=== PATIENT | male | born 1955 | race Caucasian/White ===

== ENCOUNTER → 2017-06-08 | Outpatient (CLI) | payer SELFPAY ==
--- NOTE | 2017-06-08 11:21 | KCIC ---
Indication: Low back pain. Time of exam 11 00 a.m. There is mild S-shaped scoliotic curvature to the lumbar spine, convex to the right in the upper portion and convex to the left in the lower portion. There is normal lordotic curvature. The vertebral body heights are maintained. No acute compression fracture is seen. There is significant degenerative disc disease at the L4-5 level, with disc space narrowing, marginal osteophyte formation, and vacuum disc phenomena. No definite spondylolysis or spondylolisthesis is identified. IMPRESSION: Lumbar scoliosis and spondylosis. No acute bony abnormality is detected. Electronically signed by: Aidan Alatorre MD (06/08/2017 11:18 AM) [id number]
== END | disposition home or self-care (01) ==
LOC: KCIC 10:46
PROVIDERS: ATTEND Family Medicine
DX: M47.896 Other spondylosis, lumbar region (principal); M41.86 Other forms of scoliosis, lumbar region
CPT/HCPCS: 72110

== ENCOUNTER 2019-04-08 09:26 | Emergency (ER) | payer MEDICARE ==
[~2019-04-08] VITALS: Ht 172.7 cm; Wt 68.0 kg
--- NOTE | 2019-04-08 09:58 | PHYS DOC ---
Past Medical History Past Medical History: High Cholesterol, Hypertension Past Surgical History: No Surgical History Alcohol Use: Heavy Additional Information: on average 4 beers/day Drug Use: Marijuana Adult General Chief Complaint Chief Complaint: OTHER COMPLAINTS HPI HPI Patient is a 63 year old was sent here from his PCP clinic due to rash on his face, mouth , trunk and extremities that just started to appear since yesterday. Patient is complaining of sorethroat, hurt to swallow, eye lids swelling. Patient was put on Bactrim DS on 03/22/19 for 10 days for some type of skin infection. Patient finished this medication already. Then, yesterday he developed the rash. Patient also has some diarrhea. No chest pain, no shortness of air. He felt like he has a fever but did not check his temperature. Patient denied taking any other new medications or using new soap or perfume. Patient took Cialis yesterday but he was doing ok with Cialis in the past. Review of Systems Review of Systems Constitutional: POSITIVE FOR fever or chills [] Eyes: Denies change in visual acuity, POSITIVE FOR redness AND eye pain [] HENT: Denies nasal congestion , POSITIVE FOR sore throat [] Respiratory: Denies cough or shortness of breath [] Cardiovascular: No additional information not addressed in HPI [] GI: Denies abdominal pain, nausea, vomiting, bloody stools or diarrhea [] : Denies dysuria or hematuria [] Musculoskeletal: Denies back pain or joint pain [] Integument: POSITIVE FOR SKIN RASH[] Neurologic: Denies headache, focal weakness or sensory changes [] Endocrine: Denies polyuria or polydipsia [] All other systems were reviewed and found to be within normal limits, except as documented in this note. Current Medications Current Medications Current Medications Medications (Trade) Dose Ordered Sig/Anjali Start Time Stop Time Status Last Admin Dose Admin Diphenhydramine HCl (Benadryl) 25 mg 1X ONCE 04/08/19 10:45 04/08/19 10:46 DC 04/08/19 11:03 25 MG Famotidine (Pepcid Vial) 20 mg 1X ONCE 04/08/19 10:45 04/08/19 10:46 DC 04/08/19 11:03 20 MG Fentanyl Citrate (Fentanyl 2ml Vial) 25 mcg 1X ONCE 04/08/19 17:00 04/08/19 17:01 DC 04/08/19 17:07 25 MCG Methylprednisolone Sodium Succinate (SOLU-Medrol 125MG VIAL) 125 mg 1X ONCE 04/08/19 10:45 04/08/19 10:46 DC 04/08/19 11:03 125 MG Sodium Chloride 1,000 ml @ 1,000 mls/hr 1X ONCE 04/08/19 12:00 04/08/19 12:59 DC 04/08/19 12:01 1,000 MLS/HR Allergies Allergies Allergies Coded Allergies Type Severity Reaction Last Updated Verified No Known Drug Allergies 04/08/19 No Physical Exam Physical Exam Constitutional: Well developed, well nourished, no acute distress, non-toxic appearance. [] HENT: Normocephalic, atraumatic, bilateral external ears normal, MUCOSAL DESQUAMATION, INFLAMMATION AND PEELING OF SKIN OFF UPPER AND LOWER LIPS, NUMEROUS SORES ON TONGUE AND ORAL MUCOSA. [] Eyes: PERRLA, EOMI, conjunctiva INJECTED, INFLAMMATION OF EYE LIDS BILATERALLY. Neck: Normal range of motion, no tenderness, supple, no stridor. [] Cardiovascular:Heart rate regular rhythm, no murmur [] Lungs & Thorax: Bilateral breath sounds clear to auscultation [] Abdomen: Bowel sounds normal, soft, no tenderness, no masses, no pulsatile masses. [] Skin: DIFFUSE WIDE SPREAD PAPULAR RASH ON NECK, FACE, CHEST, EXTREMITIES, PALM OF HANDS, SOLE OF FEET. Back: No tenderness, no CVA tenderness. [] Extremities: No tenderness, no cyanosis, no clubbing, ROM intact, no edema. [] Neurologic: Alert and oriented X 3, normal motor function, normal sensory function, no focal deficits noted. [] Psychologic: Affect normal, judgement normal, mood normal. [] Current Patient Data Vital Signs Vital Signs Date Time Temp Pulse Resp B/P (MAP) Pulse Ox O2 Delivery O2 Flow Rate FiO2 04/08/19 17:07 20 Room Air 04/08/19 16:37 102 121/73 (89) 04/08/19 16:07 93 04/08/19 09:37 98.8 98.8 Lab Values Laboratory Tests Test 04/08/19 10:00 04/08/19 13:54 White Blood Count 11.8 x10^3/uL (4.0-11.0) H Red Blood Count 4.80 x10^6/uL (4.30-5.70) Hemoglobin 15.7 g/dL (13.0-17.5) Hematocrit 46.2 % (39.0-53.0) Mean Corpuscular Volume 96 fL (79-100) Mean Corpuscular Hemoglobin 33 pg (25-35) Mean Corpuscular Hemoglobin Concent 34 g/dL (31-37) Red Cell Distribution Width 13.6 % (11.5-14.5) Platelet Count 181 x10^3/uL (140-400) Neutrophils (%) (Auto) 84 % (31-73) H Lymphocytes (%) (Auto) 9 % (24-48) L Monocytes (%) (Auto) 7 % (0-9) Eosinophils (%) (Auto) 0 % (0-3) Basophils (%) (Auto) 0 % (0-3) Neutrophils # (Auto) 9.9 x10^3uL (1.8-7.7) H Lymphocytes # (Auto) 1.0 x10^3/uL (1.0-4.8) Monocytes # (Auto) 0.8 x10^3/uL (0.0-1.1) Eosinophils # (Auto) 0.0 x10^3/uL (0.0-0.7) Basophils # (Auto) 0.0 x10^3/uL (0.0-0.2) Prothrombin Time 14.0 SEC (11.7-14.0) Prothrombin Time INR 1.1 (0.8-1.1) PTT 31 SEC (24-38) Sodium Level 133 mmol/L (136-145) L Potassium Level 3.6 mmol/L (3.5-5.1) Chloride Level 99 mmol/L (98-107) Carbon Dioxide Level 24 mmol/L (21-32) Anion Gap 10 (6-14) Blood Urea Nitrogen 18 mg/dL (8-26) Creatinine 1.3 mg/dL (0.7-1.3) Estimated GFR (Cockcroft-Gault) 55.4 BUN/Creatinine Ratio 14 (6-20) Glucose Level 176 mg/dL (70-99) H Lactic Acid Level 2.1 mmol/L (0.4-2.0) H 1.0 mmol/L (0.4-2.0) Calcium Level 8.6 mg/dL (8.5-10.1) Total Bilirubin 0.3 mg/dL (0.2-1.0) Aspartate Amino Transferase (AST) 40 U/L (15-37) H Alanine Aminotransferase (ALT) 65 U/L (16-63) H Alkaline Phosphatase 87 U/L (46-116) Creatine Kinase 120 U/L (39-308) Creatine Kinase MB (Mass) 1.0 ng/mL (0.0-3.6) Creatine Kinase MB Relative Index 0.8 % (0-4) Total Protein 7.8 g/dL (6.4-8.2) Albumin 3.3 g/dL (3.4-5.0) L Albumin/Globulin Ratio 0.7 (1.0-1.7) L Laboratory Tests 04/08/19 10:00 Laboratory Tests 04/08/19 10:00 EKG EKG [] Radiology/Procedures Radiology/Procedures [] Course & Med Decision Making Course & Med Decision Making Pertinent Labs and Imaging studies reviewed. (See chart for details) Discussed case with Dr. Lanie Turner, recommended to transfer patient to to be evaluated by wood floor refinisher and Burn specialist. Called transfer Center, discussed with ATTENDING PHYSICIAN, requested send pictures to [email or web address] before he can accept patient. Dragon Disclaimer Dragon Disclaimer This electronic medical record was generated, in whole or in part, using a voice recognition dictation system. Departure Departure Impression: Primary Impression: Allergic reaction to sulfonamide Additional Impression: Hurst-Mitch syndrome Disposition: 02 TRANSFER [facility] HOSP (TRANSFER TO [facility], ACCEPTED BY DR. LARES) Condition: STABLE Referrals: Martha CARR MD (PCP) Problem Qualifiers QAMAR JEFFERS DO Apr 08, 2019 09:58
[2019-04-08 10:23] LABS: CALCIUM 8.6 mg/dL (8.5-10.1); CREATININE 1.3 mg/dL (0.7-1.3); GFR 55.4; POTASSIUM 3.6 mmol/L (3.5-5.1)
--- NOTE | 2019-04-08 10:25 | RAD ---
Examination: PORTABLE CHEST 1V History: Fever Comparison/Correlation: 09/24/2018 two-view chest x-ray report Findings: Frontal and lateral views of chest were obtained. Heart size and pulmonary vascular are normal. No focal infiltrate. No pleural effusion or pneumothorax. Minimal linear scarring or discoid atelectasis involves the right lung base. This has been described on the previous report. There is a 0.9 cm diameter left upper lung field calcified granuloma. Impression: No infiltrate. Electronically signed by: Raul Young MD (04/08/2019 10:22 AM) [id number]
[2019-04-08 10:30] LABS: ALBUMIN 3.3 g/dL (3.4-5.0); ALBUMIN/GLOBULIN RATIO 0.7 (1.0-1.7); TOTAL BILIRUBIN 0.3 mg/dL (0.2-1.0); TOTAL PROTEIN 7.8 g/dL (6.4-8.2)
[2019-04-08 10:32] LABS: BASO % 0 % (0-3); EOS % 0 % (0-3); HEMATOCRIT 46.2 % (39.0-53.0); HEMOGLOBIN 15.7 g/dL (13.0-17.5); LYMPH % 9 % (24-48); MEAN CORPUSCULAR HEMOGLOBIN 33 pg (25-35); MEAN CORPUSCULAR HGB CONC 34 g/dL (31-37); MEAN CORPUSCULAR VOLUME 96 fL (79-100); MONO # 0.8 x10^3/uL (0.0-1.1); MONO % 7 % (0-9); NEUT # 9.9 x10^3uL (1.8-7.7); NEUT % 84 % (31-73); PLATELET COUNT 181 x10^3/uL (140-400); RED CELL DISTRIBUTION WIDTH 13.6 % (11.5-14.5); WHITE BLOOD COUNT 11.8 x10^3/uL (4.0-11.0)
[2019-04-08] MEDS ORDERED: methylPREDNISolone SOD SUCC PF 125 MG/2 ML VIAL. IV ONE (10:45)
[2019-04-08] MEDS ORDERED: diphenhydrAMINE 50 MG/ML VIAL IVP ONE (10:45)
[2019-04-08] MEDS ORDERED: FAMOTIDINE 20 MG/2 ML VIAL IVP ONE (10:45)
[2019-04-08] MEDS ORDERED: IV NORMAL SALINE 1000ML BAG 1,000 ML IV ONE (12:00)
[2019-04-08] MEDS ORDERED: fentaNYL PF VIAL 100 MCG/2 ML VIAL IV ONE (17:00)
[2019-04-08 17:37] VITALS: BP 110/69
== END 2019-04-08 18:22 | disposition short-term general hospital (02) ==
LOC: ER 09:26
DX: L51.1 Stevens-Johnson syndrome (principal); T37.0X5A Adverse effect of sulfonamides, initial encounter; R19.7 Diarrhea, unspecified; J02.9 Acute pharyngitis, unspecified; F10.20 Alcohol dependence, uncomplicated; Y90.9 Presence of alcohol in blood, level not specified; Y92.89 Other specified places as the place of occurrence of the external cause
CPT/HCPCS: 36415; 71045; 80053; 82553; 83605; 85025; 85610; 85730; 87040; 96361; 96374; 96375; 99285; J1200; J2930; J3010; J3490; J7030

== ENCOUNTER → 2020-10-27 | Outpatient (CLI) | payer OTHER ==
[~2020-10-27] MED LIST: AMLO-186 PO; ATOR40TA59 PO; GABA300C18 PO; LISI-130 PO; METO-247 PO
== END ==
LOC: LAB 14:20
PROVIDERS: ATTEND Surgery
DX: Z01.812 Encounter for preprocedural laboratory examination (principal); Z20.828 Contact with and (suspected) exposure to other viral communicable diseases
CPT/HCPCS: U0003

== ENCOUNTER → 2020-10-30 | Day surgery (SDC) | payer OTHER ==
[~2020-10-30] MED LIST changes: +LIDOCAINE 1%/EPI 1:100,000 20 ML VIAL. INJ ONE
--- NOTE | 2020-10-30 12:03 | PDOC4 ---
Operative Note Operative Note Date: October 302020 at 1201 Preoperative diagnosis: Upper back mass Postoperative diagnosis: Same Procedure: Excision of upper back mass Surgeon: Drake Specimen: Upper back mass 1.5 cm Dictation: Patient is a 65-year-old gentleman is complaining of an enlarging mass on his upper back that occasionally is quite painful. Procedure of excision was explained to the patient detail was benefits were also discussed including bleeding infection alternatives to this procedure also discussed with the patient who seemed to understand and gave a verbal written consent had saranya faye performed. Patient placed in the prone positioning his upper back was prepped and draped usual sterile fashion using ChloraPrep. Area around the mass was injected with 1% lidocaine with epinephrine once this is anesthetized an elliptical incision was made with 15 blade scalpel the incision size was 2 cm the mass was completely excised sharply and sent for pathology. The wound was then closed in 2 layers deep layer running 3-0 Vicryl and the skin was reapproximated for subcuticular Monocryl Mastisol Steri-Strips and island dressings were applied. Patient tolerated procedure well was discharged home in stable condition all sponge instrument needle counts listed as correct. Estimated blood loss 5 mL EMILY POP MD Oct 30, 2020 12:03
--- NOTE | 2020-10-30 12:04 | DISCH ---
DISCHARGE INSTRUCTIONS Condition on Discharge Condition on Discharge: Stable Activity After Discharge Activity Instructions for Disc: Activity as tolerated Diet after Discharge Diet after Discharge: Regular Wound Incision Care Other wound/incision instructi: Sheyla shower 24 hours Contacting the after DC Call your doctor for: If your condition worsens Follow-Up Follow up with: Dr. Pop in 2 weeks EMILY POP MD Oct 30, 2020 12:04
== END | disposition home or self-care (01) ==
LOC: SURG 10:59
PROVIDERS: ATTEND Surgery
DX: R22.1 Localized swelling, mass and lump, neck (principal); L72.3 Sebaceous cyst; L72.0 Epidermal cyst; I10 Essential (primary) hypertension; F17.210 Nicotine dependence, cigarettes, uncomplicated; Z79.899 Other long term (current) drug therapy; Z98.890 Other specified postprocedural states; Z88.2 Allergy status to sulfonamides; Z88.8 Allergy status to other drugs, medicaments and biological substances; Z72.89 Other problems related to lifestyle
CPT/HCPCS: 11402; 88304; J3490

== ENCOUNTER → 2021-05-24 | Outpatient (CLI) | payer OTHER ==
[~2021-05-24] MED LIST changes: -LIDOCAINE 1%/EPI 1:100,000 20 ML VIAL. INJ ONE
--- NOTE | 2021-05-24 12:16 | KCIC ---
EXAM: CT coronary artery calcium screening; radiologist over read. HISTORY: Cardiovascular screening. Hyperlipidemia. Hypertension. Cigarette smoking. TECHNIQUE: Computed tomographic images of the chest were obtained without contrast. Multiplanar refor matting was performed. *One or more of the following individualized dose reduction techniques were utilized for this examina tion: 1. Automated exposure control. 2. Adjustment of the mA and/or kV according to patient size. 3. Use of iterative reconstruction technique. COMPARISON: None. FINDINGS: The heart is normal in size. There is calcified atherosclerotic plaque involving the correa ry arteries. There is no lymphadenopathy. There is no pneumothorax or pleural effusion. There is mild pulmonary emphysema. There is linear atelectasis or scarring within the lingula. There is also bilat eral basilar linear atelectasis or scarring. There is no acute osseous finding or acute finding invol ving the visualized upper abdomen. Coronary artery calcium score: Left main artery - 0 Left anterior descending - 327.0 Left circumflex - 51.4 Right coronary artery - 420.1 Posterior descending artery - 0 TOTAL = 798.5 IMPRESSION: 1. Coronary artery calcium score of 798.5. There is a large amount of calcified atherosclerotic plaqu e. The chance of a cardiac event is high. 2. Mild pulmonary emphysema and bilateral linear atelectasis or scarring. There is no acute thoracic finding. Electronically signed by: Eliza Singh MD (05/24/2021 12:14 PM) [id number]
== END ==
LOC: KCIC CT 10:30
PROVIDERS: ATTEND Family Medicine
DX: Z13.6 Encounter for screening for cardiovascular disorders (principal); I25.10 Atherosclerotic heart disease of native coronary artery without angina pectoris; J43.9 Emphysema, unspecified
CPT/HCPCS: 75571

== ENCOUNTER → 2021-05-27 | Outpatient (CLI) | payer OTHER ==
--- NOTE | 2021-05-27 14:32 | KCIC ---
EXAM: Lower extremity arterial Doppler sonogram with ankle-brachial indices (LINA). HISTORY: Tobacco use. Leg weakness. Hypertension. Peripheral vascular disease. Atherosclerosis. TECHNIQUE: Doppler sonographic evaluation of the lower extremities was performed and pressure reading s were assessed. FINDINGS: Right brachial pressure: 148 mmHg Left brachial pressure: 146 mmHg Right ankle pressure (dorsalis pedis artery): 143 mmHg Right ankle pressure (posterior tibial artery): 147 mmHg Right LINA: 0.99 Left ankle pressure (dorsalis pedis artery): 143 mmHg Left ankle pressure (posterior tibial artery): 140 mmHg Left LINA: 0.96 IMPRESSION: Normal bilateral ankle brachial indices. Electronically signed by: Eliza Singh MD (05/27/2021 2:30 PM) [id number]
== END ==
LOC: KCIC US 14:04
PROVIDERS: ATTEND Family Medicine
DX: I70.203 Unspecified atherosclerosis of native arteries of extremities, bilateral legs (principal); I10 Essential (primary) hypertension; R53.1 Weakness; Z72.0 Tobacco use
CPT/HCPCS: 93922

== ENCOUNTER → 2021-08-10 | Outpatient (CLI) | payer OTHER ==
[~2021-08-10] MED LIST changes: +REGADENOSON 0.4 MG/5 ML DISP.SYRIN. IV ONE
--- NOTE | 2021-08-11 17:16 | RAD ---
MR#: [id number] Date of Study: 08/10/2021 Ordering Physician: ALEJANDRO ALFORD, Referring Physician: PRITESH NIETO Tech: RT Jerel Burton) (N) APPROVED REPORT Test Type: Pharmacological Stress Nurse/Tech: Marika Fish RN Test Indications: Dyspnea on exertion Cardiac History: Hypertension,smoker Medications: See Electronic Medical Record Medical History: See Electronic Medical Record Resting ECG: SR Resting Heart Rate: 65 bpm Resting Blood Pressure: 130/80mmHg Pretest Chest Pain: No chest pain Nurse/Tech Notes S1,S2 and lungs slightly diminished in the bases. Consent: The procedure was explained to the patient in lay terms. Informed consent was witnessed. Daren eout was entered into [employer]. History and Stress Test performed by RT Jerel Burton) (N) Pharm. Details Pharmacologic stress testing was performed using 0.4mg per 5ml of regadenoson given intravenously ove r 7-10 seconds. Stress Symptoms Dyspnea,felt "weird" POST EXERCISE Reason for Termination: Infusion complete Target HR: No Max HR: 110 bpm 84% of Maximum Predicted HR: 130 bpm Max Blood Pressure: 123/82mmHg Blood Pressure response to exercise: Normal blood pressure response during stress. Heart Rate response to exercise: WNL Chest Pain: No. Arrhythmia: No. INTERPRETATION Stress EKG Conclusion: The resting EKG shows a sinus rhythm. The stress EKG shows no significant changes from baseline. No EKG evidence of stress-induced ischemia. Imaging Protocol IMAGE PROTOCOL: Rest Tc-99m/stress Tc-99m 1 day Rest: Stress: Viability: Radiopharm.Tc99m [id number] Sestamibi Dose10.4mCi 31mCi Duration 13min. 13min. Img Date 08/10/2021 08/10/2021 Inj-Img Roip11opn. 60min. Rest Admin Site:IV - Right AntecubitalAdministrator:ALMA Dash, ARRT (R)(N) Stress Admin Site: IV - Right AntecubitalAdministrator: Caprice Ponce, NMTCB, ARRT (R)(N) STRESS DATA End Diast. Vol.79.0mlLVEDV index BSA44.0ml End Syst. Vol.26.0mlLVESV index BSA14.0ml Myocardial Ulaw630.0gEject. Qmvqjsga21.0% Stress Scores Regional WT2.00Summed WT15.00 Regional WM0.00Summed WM1.00 LV Perfusion The stress scans show no significant defects. The rest scans show no significant defects. Nuclear imaging shows no reversible ischemia or infarct. Wall Motion Left ventricular systolic function is normal with no regional wall motion abnormalities and an ejecti on fraction of 68%. LV Perf. Quant 17 Seg. SSS1.00 17 Seg. SRS1.00 17 Seg. SDS0.00 Stress Defect Extent (% LAD)1.30Rest Defect Extent (% LAD)3.80Rev. Defect Extent (% LAD)0.00 Stress Defect Extent (% LCX) 0.00Rest Defect Extent (% LCX)0.00Rev. Defect Extent (% LCX)0.00 Stress Defect Extent (% RCA)2.20Rest Defect Extent (% RCA)0.00Rev. Defect Extent (% RCA)1.10 Stress Defect Extent (% ADELA)5.00Rest Defect Extent (% ADELA)3.30Rev. Defect Extent (% ADELA)0.40 Conclusion 1. No EKG evidence of stress-induced ischemia. 2. Nuclear imaging shows no reversible ischemia or infarct. 3. Normal left ventricular systolic function with an ejection fraction of 68%. 4. Low risk Lexiscan nuclear stress test. Signed by : Alejandro Alford MD Electronically Approved : 08/11/2021 17:15:37
== END ==
LOC: NM 09:38
PROVIDERS: ATTEND Internal Medicine Cardiovascular Disease
DX: R06.09 Other forms of dyspnea (principal)
CPT/HCPCS: 78452; 93017; A9500; J2785